=== PATIENT | female | born 1955 ===

== ENCOUNTER 2022-07-21 05:29 | Observation (INO) ==
[~2022-07-21 05:29] MED LIST: BUPIVACAINE **LIPOSOME/PF 13.3 MG/ML (266MG/ 20ML) VIAL (RESTRICTED) INFIL ONE; HYDROmorphone 1 MG/1 ML SYRINGE IV PRN; Naloxone 0.4 mg VIAL 0.4 mg/ml 1 ml VIAL IV PRN; Ondansetron 4 mg VIAL 2 MG/ML 2 ml VIAL IV PRN; Prochlorperazine 5 mg/ml 2 ml VIAL (10 mg) IV PRN; fentaNYL 100 mcg/2 ml 50 MCG/ML VIAL IV PRN
[2022-07-21] MEDS ORDERED: Buffered Lidocaine 1% SYRIN 1 ml INTRADERM ONE (06:00)
[2022-07-21] MEDS ORDERED: Famotidine IV 10 MG/ML 2 ml VIAL (20 mg) IV ONE (06:00)
[2022-07-21] MEDS ORDERED: Lactated Ringers 1000 ml BAG 1,000 ML IV SCH (06:00)
[2022-07-21] MEDS ORDERED: ceFAZolin 2 GM PREMIX 2 GM/50 ML BAG ONE (06:12)
[2022-07-21] MEDS ORDERED: fentaNYL 100 mcg/2 ml 50 MCG/ML VIAL ONE (06:57)
[2022-07-21] MEDS ORDERED: Rocuronium 50 mg VIAL 10 mg/ml 5 ml VIAL (50 mg) ONE (06:57)
[2022-07-21] MEDS ORDERED: Midazolam 2 mg/2 ml VIAL 1 mg/ml 2 ml VIAL (2 mg) ONE (06:57)
[2022-07-21] MEDS ORDERED: Lidocaine 2% PF 5 ML VIAL ONE (06:58)
[2022-07-21] MEDS ORDERED: Sevoflurane BOTTLE ONE (06:58)
[2022-07-21] MEDS ORDERED: Dexamethasone IV 4 MG/ML VIAL 1 ml VIAL ONE ×2 (06:58→07:28)
[2022-07-21] MEDS ORDERED: Propofol 10 MG/ML 20 ML BTL ONE (06:58)
[2022-07-21] MEDS ORDERED: Ondansetron 4 mg VIAL 2 MG/ML 2 ml VIAL ONE (06:58)
[2022-07-21] MEDS ORDERED: Acetaminophen IV 1 GM/100ML 1,000 MG/100 ML BAG IV ONE (06:59)
[2022-07-21] MEDS ORDERED: ceFAZolin VIAL VIAL ONE (07:00)
[2022-07-21] MEDS ORDERED: Lidocaine 2% w EPI 1:100,000 20 ML MDV VIAL ONE (07:01)
[2022-07-21] MEDS ORDERED: Bupivacaine 0.25% SDV 30 ML ONE (07:06)
[2022-07-21] MEDS ORDERED: ROPIVACAINE 5 MG/ML 30 ML BTL (0.5%) ONE (07:28)
[2022-07-21] MEDS ORDERED: Sterile Water for Inj 10 ML ONE (08:24)
[2022-07-21] MEDS ORDERED: Phenylephrine IV 10 MG/ML 1 ml VIAL ONE (08:25)
[2022-07-21] MEDS ORDERED: Morphine 2 MG/ML SYRINGE IV PRN (11:20)
[2022-07-21] MEDS ORDERED: Magnesium Hydroxide LIQ 30 ML UDC PO PRN (11:20)
[2022-07-21] MEDS ORDERED: Lactulose 30 ml UDC PO PRN (11:20)
[2022-07-21] MEDS ORDERED: Ondansetron 4 mg VIAL 2 MG/ML 2 ml VIAL IV PRN (11:20)
[2022-07-21] MEDS ORDERED: Ondansetron ODT 4 mg TAB 4 MG TAB PO PRN (11:20)
[2022-07-21] MEDS ORDERED: ceFAZolin 1 GM ADVAN 1 GM in NS 0.9% 50 ML 50 ML IVPB SCH (12:00)
[2022-07-21] MEDS: Lactated Ringers 1000 ml BAG 1,000 ML IV SCH (16:00)
[2022-07-21] MEDS: ceFAZolin 1 GM ADVAN 1 GM in NS 0.9% 50 ML 50 ML IVPB SCH (16:39)
[2022-07-21] MEDS: Magnesium Hydroxide LIQ 30 ML UDC PO SCH (21:47)
[2022-07-22] MEDS: Lactated Ringers 1000 ml BAG 1,000 ML IV SCH (00:17)
[2022-07-22] MEDS: ceFAZolin 1 GM ADVAN 1 GM in NS 0.9% 50 ML 50 ML IVPB SCH ×2 (00:17→08:20)
[2022-07-22 06:25] LABS: Hematocrit 31 % (35-47); Hemoglobin 10.2 g/dL (12.0-16.0); Mean Platelet Volume 9.9 fL (7.4-10.4); Platelet Count 126 10^3/uL (150-450)
[2022-07-22 07:08] LABS: CO2 Carbon Dioxide 28 mmol/L (22-32); Calcium 8.7 mg/dL (8.6-10.3); Chloride 106 mmol/L (101-111); Potassium 4.7 mmol/L (3.5-5.0); Sodium 134 mmol/L (135-145)
[2022-07-22 07:13] LABS: Blood Urea Nitrogen 15 mg/dL (6-24); Glucose 233 mg/dL (70-100); eGFR CKD-EPI 97.3 (>60)
[2022-07-22] MEDS: Magnesium Hydroxide LIQ 30 ML UDC PO SCH (08:20)
[2022-07-22] MEDS ORDERED: Vitamin THERAPEUTIC TAB PO SCH (09:00)
[2022-07-22 12:50] VITALS: BP 112/55
== END 2022-07-22 15:20 | disposition home or self-care (01) ==
LOC: OR 05:29 → SSU 05:29
PROVIDERS: ADMIT Orthopaedic Surgery Sports Medicine; ATTEND Orthopaedic Surgery Sports Medicine